=== PATIENT | male | born 1995 | race Caucasian/White ===

== ENCOUNTER 2019-03-07 23:31 | Emergency (ER) | payer MEDICARE, MEDICAID ==
[~2019-03-07] VITALS: Ht 182.9 cm; Wt 113.4 kg
[~2019-03-07 23:31] MED LIST: RISP4TAB50; TOPI100T29
[2019-03-07 23:55] LABS: Urine Bacteria NONE SEEN /hpf (None Seen); Urine Blood Negative /uL (Negative); Urine Specific Gravity 1.006 (1.001-1.035); Urine WBC <1 /hpf (0 - 3)
[2019-03-08 00:23] LABS: Basophils # (auto) 0 uL; Basophils % (auto) 0.5 % (0.0-2.0); Eosinophils # (auto) 0.1 uL; Eosinophils % (auto) 1.2 % (0.0-7.0); Hematocrit 47.1 % (41.0-53.0); Hemoglobin 15.8 g/dL (13.5-17.5); Lymphocytes # (auto) 2.7 uL; Lymphocytes % (auto) 34.9 % (10.0-50.0); Mean Corpuscular Hemoglobin 29.2 pg (28.0-32.0); Mean Corpuscular Hgb Conc. 33.6 g/dL (32.0-36.0); Mean Corpuscular Volume 86.8 fL (80.0-100.0); Monocytes # (auto) 0.7 uL; Monocytes % (auto) 8.4 % (0.0-12.0); Neutrophils # (auto) 4.3 uL; Nucleated Red Blood Cells % 0.1 %; Platelet Count (auto) 261 10^3/uL (140-450); Red Blood Cells 5.42 10^6/uL (4.5-5.90); Red Cell Distribution Width 13.6 % (11.8-14.3); White Blood Cell 7.8 10^3/uL (4.4-10.8)
[2019-03-08 00:25] LABS: Alcohol, Urine < 3.0 mg/dL (0-5); Amphetamine Screen, Urine NEGATIVE (NEGATIVE); Barbiturate Scree,Urine NEGATIVE (NEGATIVE); Benzodiazephine Screen, Urine NEGATIVE (NEGATIVE); Cannabinoid Screen, Urine NEGATIVE (NEGATIVE); Cocaine Screen, Urine NEGATIVE (NEGATIVE); Opiate Scree,Urine NEGATIVE (NEGATIVE); Phencyclidine Screen, Urine NEGATIVE (NEGATIVE)
[2019-03-08] MEDS ORDERED: SODIUM CHLORIDE 0.9% 1,000 ML IV ONE (00:30)
[2019-03-08 00:40] LABS: Alanine Aminotransferase 33 U/L (16-61); Albumin 4.5 g/dL (3.4-5.0); Anion Gap 9 (5-15); Aspartate Aminotransferase 27 U/L (15-37); BUN/Creatinine Ratio 13.9; Blood Alcohol < 3.0 mg/dL (0-5); Blood Urea Nitrogen 15 mg/dL (7-18); Calcium 9.7 mg/dL (8.5-10.1); Carbon Dioxide 26 mmol/L (21-32); Chloride 103 mmol/L (98-107); GFR African American 111 mL/min; GFR Non-African American 92 mL/min; Glucose 122 mg/dL (74-106); Magnesium 2.3 mg/dL (1.6-2.6); Potassium 3.2 mmol/L (3.5-5.1); Sodium 138 mmol/L (136-145)
[2019-03-08 00:43] LABS: Alkaline Phosphatase 207 U/L (45-117); Bilirubin, Total < 0.1 mg/dL (0.2-1.0); Total Protein 9.2 g/dL (6.4-8.2)
[2019-03-08 00:56] LABS: Digoxin (Lanoxin) 0.7 ng/mL (0.8-2); Salicylate < 1.7 mg/dL (2.8-20.0)
[2019-03-08 00:57] LABS: Acetaminophen < 2.0 ug/mL (10-30)
[2019-03-08 07:29] VITALS: BP 116/55
== END 2019-03-08 10:17 | disposition home or self-care (01) ==
LOC: EDBD 23:31 → ER 23:33
DX: T50.902A Poisoning by unspecified drugs, medicaments and biological substances, intentional self-harm, initial encounter (principal); F32.9 Major depressive disorder, single episode, unspecified; Y92.9 Unspecified place or not applicable
CPT/HCPCS: 36415; 80053; 80162; 80307; 80320; 80329; 81001; 83735; 85025; 93005; 94761; 99284; J7030

== ENCOUNTER 2019-06-19 19:20 | Inpatient (IN) | payer MEDICARE, MEDICAID | END 2019-07-01 16:00 | disposition home or self-care (01) | LOC: TELE-WESTW 06-26 11:30 → ICU WEST 06-20 01:08 → DOU IN ICU 06-24 23:55 → ER 19:20 → TELE 19:21 | PROC: 5A1955Z Respiratory Ventilation, Greater than 96 Consecutive Hours (ICD-10-PCS; principal; ~2019-06-19) | PROC: 0BH17EZ Insertion of Endotracheal Airway into Trachea, Via Natural or Artificial Opening (ICD-10-PCS; ~2019-06-19) | PROC: 0T9B70Z Drainage of Bladder with Drainage Device, Via Natural or Artificial Opening (ICD-10-PCS; ~2019-06-19) | DX: A41.9 Sepsis, unspecified organism (principal); J96.01 Acute respiratory failure with hypoxia; G93.41 Metabolic encephalopathy; I21.A1 Myocardial infarction type 2; N17.0 Acute kidney failure with tubular necrosis; G40.89 Other seizures; M62.82 Rhabdomyolysis; G40.201 Localization-related (focal) (partial) symptomatic epilepsy and epileptic syndromes with complex partial seizures, not intractable, with status epilepticus; E87.2 Acidosis; I47.2 Ventricular tachycardia; R79.89 Other specified abnormal findings of blood chemistry; E87.5 Hyperkalemia; I10 Essential (primary) hypertension; F31.9 Bipolar disorder, unspecified; E87.6 Hypokalemia; R30.0 Dysuria ==

== ENCOUNTER 2020-10-10 00:12 | Emergency (ER) | payer OTHER, MEDICAID ==
[~2020-10-10] VITALS: Ht 177.8 cm; Wt 117.9 kg
[~2020-10-10 00:12] MED LIST changes: +AMPH10TA2 PO; +DIGO1TAB35 PO; +HCTZ25T PO; +HYDR50CA2 PO; +LACO100T PO; +LISI-648 PO; +LURA80TA PO; +METO25TA93 PO; +OLAN1TAB19 PO; +SERT-274 PO; -TOPI100T29; +TOPI100T29 PO
[2020-10-10] MEDS ORDERED: SODIUM CHLORIDE 0.9% 2,000 ML IV ONE (01:30)
[2020-10-10 01:32] LABS: Basophils # (auto) 0 10 ^3/uL (0-0.2); Basophils % (auto) 0.3 % (0.0-2.0); Eosinophils # (auto) 0.1 10 ^3/uL (0-0.8); Eosinophils % (auto) 0.7 % (0.0-7.0); Hematocrit 43.7 % (41.0-53.0); Hemoglobin 14.4 g/dL (13.5-17.5); Lymphocytes # (auto) 1.8 10 ^3/uL (0.4-5.4); Lymphocytes % (auto) 15.1 % (10.0-50.0); Mean Corpuscular Hemoglobin 29.3 pg (28.0-32.0); Mean Corpuscular Hgb Conc. 32.9 g/dL (32.0-36.0); Mean Corpuscular Volume 89.1 fL (80.0-100.0); Monocytes # (auto) 1.2 10 ^3/uL (0-1.3); Monocytes % (auto) 9.5 % (0.0-12.0); Neutrophils # (auto) 9.1 10 ^3/uL (1.6-8.6); Neutrophils % (auto) 74.4 % (37.0-80.0); Nucleated Red Blood Cells % 0.1 %; Platelet Count (auto) 250 10^3/uL (140-450); Red Cell Distribution Width 13.5 % (11.8-14.3); White Blood Cell 12.2 10^3/uL (4.4-10.8)
[2020-10-10 01:49] LABS: Alanine Aminotransferase 43 U/L (16-61); Albumin 4.3 g/dL (3.4-5.0); Anion Gap 13 (5-15); BUN/Creatinine Ratio 13.5; Blood Alcohol < 3.0 mg/dL (0-5); Blood Urea Nitrogen 14 mg/dL (7-18); Calcium 9.2 mg/dL (8.5-10.1); Carbon Dioxide 20 mmol/L (21-32); Chloride 106 mmol/L (98-107); GFR African American 115 mL/min; GFR Non-African American 95 mL/min; Glucose 120 mg/dL (74-106); Magnesium 2.4 mg/dL (1.6-2.6); Potassium 3.3 mmol/L (3.5-5.1); Sodium 139 mmol/L (136-145)
[2020-10-10 01:52] LABS: Acetaminophen < 2.0 ug/mL (10-30); Alkaline Phosphatase 162 U/L (45-117); Aspartate Aminotransferase 22 U/L (15-37); Bilirubin, Total 0.1 mg/dL (0.2-1.0); Salicylate < 1.7 mg/dL (2.8-20.0); Total Protein 8.7 g/dL (6.4-8.2)
[2020-10-10 03:47] LABS: Alcohol, Urine < 3.0 mg/dL (0-10); Amphetamine Screen, Urine NEGATIVE (NEGATIVE); Barbiturate Scree,Urine NEGATIVE (NEGATIVE); Benzodiazephine Screen, Urine NEGATIVE (NEGATIVE); Cannabinoid Screen, Urine NEGATIVE (NEGATIVE); Cocaine Screen, Urine NEGATIVE (NEGATIVE); Opiate Scree,Urine NEGATIVE (NEGATIVE); Phencyclidine Screen, Urine NEGATIVE (NEGATIVE)
[2020-10-10 03:48] LABS: Urine Bacteria NONE SEEN /hpf (None Seen); Urine Blood Negative /uL (Negative); Urine Hyaline Cast FEW /lpf (0 - 2); Urine Mucus FEW (None Seen); Urine Specific Gravity 1.016 (1.001-1.035); Urine WBC 1 /hpf (0 - 3)
[2020-10-10 11:00] VITALS: BP 128/90
== END 2020-10-10 12:28 | disposition home or self-care (01) ==
LOC: EDBD 00:12 → ER 00:12
DX: T14.91XA Suicide attempt, initial encounter (principal); U07.1 COVID-19; X83.8XXA Intentional self-harm by other specified means, initial encounter; Y93.89 Activity, other specified; Y92.89 Other specified places as the place of occurrence of the external cause; Y99.8 Other external cause status
CPT/HCPCS: 36415; 71045; 80053; 80307; 80320; 80329; 81001; 83735; 85025; 87426; 93005; 96360; 99285; J7030

== ENCOUNTER 2022-10-03 17:40 | Emergency (ER) | payer OTHER, MEDICAID ==
[~2022-10-03] VITALS: Ht 188 cm; Wt 117.7 kg
[~2022-10-03 17:40] MED LIST changes: -HCTZ25T PO; +HYDR25TA5 PO; -LISI-648 PO; +LISI-716 PO; +RISP4TAB25; -RISP4TAB50; -SERT-274 PO; +SERT50TA19 PO
[2022-10-03] MEDS ORDERED: CEPH-510 PO (20:05)
[2022-10-03] MEDS ORDERED: TETANUS-DIPTH-ACEL PERTUSSIS 0.5ML SYR Tdap IM ONE (20:15)
[2022-10-03 21:44] VITALS: BP 137/75
== END 2022-10-03 21:51 | disposition home or self-care (01) ==
LOC: ER 17:40
DX: S60.410A Abrasion of right index finger, initial encounter (principal); J45.909 Unspecified asthma, uncomplicated; Z79.899 Other long term (current) drug therapy; W26.8XXA Contact with other sharp object(s), not elsewhere classified, initial encounter; Y93.89 Activity, other specified; Y92.89 Other specified places as the place of occurrence of the external cause; Y99.8 Other external cause status
CPT/HCPCS: 90471; 90715

== ENCOUNTER 2022-12-08 16:13 | Emergency (ER) | payer OTHER, MEDICAID ==
[~2022-12-08] VITALS: Ht 188 cm; Wt 120.2 kg
[~2022-12-08 16:13] MED LIST changes: +CEPH-510 PO
[2022-12-08 16:39] VITALS: BP 126/76
== END 2022-12-08 18:33 | disposition left against medical advice (07) ==
LOC: ER 16:13
DX: M79.671 Pain in right foot (principal); Z53.21 Procedure and treatment not carried out due to patient leaving prior to being seen by health care provider
CPT/HCPCS: 73630